=== PATIENT | female | born 1980 | race Two or more races ===

== ENCOUNTER 2025-07-13 11:57 | Emergency (ER) | payer OTHER ==
[~2025-07-13] VITALS: Ht 142.2 cm; Wt 47.6 kg
[~2025-07-13 11:57] MED LIST: POLY119PG PO; SURFAK240 MG PO; ULTRACET PO
[2025-07-13 12:02] VITALS: BP 122/89; O2SAT 100
[2025-07-13] MEDS ORDERED: KETOROLAC TROMETHAMINE 60 MG VIAL IM ONE (13:00)
[2025-07-13] MEDS ORDERED: ORPHENADRINE CITRATE 30 MG/ML AMPUL IM ONE (13:00)
[2025-07-13] MEDS ORDERED: NORFLEX100MG PO (16:01)
== END 2025-07-13 16:18 | disposition home or self-care (01) ==
LOC: ER 11:57
DX: M25.561 Pain in right knee (principal)